=== PATIENT | female | born 1990 | race Caucasian/White ===

== ENCOUNTER 2018-10-10 14:22 | Inpatient (IN) | payer OTHER ==
[2018-10-10] MEDS ORDERED: Lactated Ringers 1000 ML Bag* 1,000 ML IV ONE (16:23)
[2018-10-10] MEDS ORDERED: Buffered Lidocaine 1% SYRIN* 1 ML/SYRINGE INTRADERM ONE (16:23)
--- NOTE | 2018-10-10 16:28 | HP ---
General Information - Reason for Visit Term , induction of labor - General Information Maternal Age: 27 Grav: 5 Para: 4 SAB: 0 IEA: 0 Estimated Due Date: 10/16/18 Determined By: LMP Maternal Blood Type and Rh: O Positive - Results this Serology/RPR Result: Non-Reactive Rubella Result: Immune HBsAg Result: Negative HIV Result: Negative GBS Culture Result: Positive Past Medical History Delivery History: Hx Uncomplicated Vaginal Delivery Pertinent Past Medical History: Non-Contributory Pertinent Past Surgical History: None Pertinent Family History: See Records - HTN - Antepartal Records Antepartal Records: Reviewed, Complicated by: - late to care, BMI 34, GBS + Review of Systems Constitutional: Comfortable CV Complaint: No Respiratory: Shortness of Breath: No Gastrointestinal: No Nausea/Vomiting, Normal Bowel Movement Genitourinary: No Dysuria, No Bleeding, No Leaking Fluid Musculoskeletal: No Complaint, No Epigastric Pain Neurological: No Headache, No Visual Changes Movement: Normal Exam Allergies/Adverse Reactions: Allergies No Known Allergies Allergy (Verified 06/13/13 16:07) T98.7, P:77, R:18, BP: 130/71, O2:99% - Measurements Height: 5 ft 8 in Weight: 238 lb Weight in lbs: 238.238685 Body Mass Index (BMI): 36.1 Pre- Weight: 220 lb Weight Gained This : 18 lbs and 0 ozs - Exam Breast: Breast Exam Deferred CVA: No CVA Tenderness Extremities: No Edema Heart: Normal Rhythm/Heart Sounds HEENT: No Significant Findings Lungs: Clear Bilaterally Rectal: Rectal Exam Deferred Reflexes: DTR 2+ Thyroid: No Thyromegaly - Abdominal Exam Abdomen Exam: Fundal Height Consistent with Dates - Ultrasound/Biophysical Profile Ultrasound Status: Not Done Targeted Exam Findings Estimated Weight: 8lbs Cervical Exam: 4cm Effacement: 70% Station: -2 Presenting Part: Vertex Membrane Status: Intact Bleeding/Discharge: None EFM Findings - External Monitor Findings Baseline Heart Rate: 120 External Monitor Findings: Accelerations Present, No Pattern of Variable or Late Decelerations, Variability Moderate, Baseline Stable Contractions: Irregular, Mild, < 45 Seconds
[2018-10-10 16:49] LABS: ABS Basophils 0.1 10^3/ul (0-0.2); ABS Eosinophils 0.1 10^3/ul (0-0.6); ABS Lymphocytes 1.8 10^3/ul (1.0-4.8); ABS Monocytes 0.5 10^3/ul (0-0.8); ABS Neutrophils 11.5 10^3/ul (1.5-7.7); Eosinophil % 0.5 %; Hematocrit 34 % (35-47); Hemoglobin 11.4 g/dL (12.0-16.0); Mean Corpuscular HGB Conc 34 g/dL (31-36); Mean Corpuscular Hemoglobin 29 pg (27-31); Mean Corpuscular Volume 87 fL (80-97); Mean Platelet Volume 9.7 fL (7.4-10.4); Platelet Count 176 10^3/uL (150-450); Red Blood Count 3.88 10^6 /uL (3.70-4.87); Red Cell Distribution Width 14 % (10.5-15); White Blood Count 13.9 10^3/uL (3.5-10.8)
[2018-10-10] MEDS ORDERED: Penicillin G Potassium IV* 5,000,000 UNITS in NS 0.9% 100 ML* 100 ML IVPB ONE (17:00)
[2018-10-10] MEDS ORDERED: Lactated Ringers 1000 ML Bag* 1,000 ML IV SCH (17:00)
[2018-10-10 17:09] LABS: Albumin 3.5 g/dL (3.2-5.2); Calcium 9.2 mg/dL (8.6-10.3); Potassium 3.7 mmol/L (3.5-5.0); Total Bilirubin 0.5 mg/dL (0.2-1.0)
[2018-10-10 17:15] LABS: Albumin/Globulin Ratio 1.1 (1-3); BUN/Creatinine Ratio 12.9 (8-20); EGFR African American 139.7 (>60); EGFR Non-African American 115.5 (>60); Globulin 3.2 g/dL (2-4); Total Protein 6.7 g/dL (6.4-8.9)
[2018-10-10] MEDS: Penicillin G Potassium IV* 2,500,000 UNITS in NS 0.9% 100 ML* 100 ML IVPB SCH (21:06)
--- NOTE | 2018-10-10 21:31 | PN ---
Progress Note - Progress Note Date of Service: 10/10/18 SOAP: Subjective: [Pt reports irregular mild ctx, + FM, -LOF, -VB.] Objective: [BP: 121/55, P:71, R:18, T:98.7, FHR: 130, + accels, -decels, moderate variability, ctx irregular. Cervix: 4-5/70/-1, AROM- clear] Assessment: [27 y.o. , 39w1d EGA, induction of labor] Plan: [1. AROM 2. Ambulation 3. Con't GBS prophylaxis 4. Reevaluate in 2 hrs or sooner PRN. Consider pitocin augmentation if no progress.]
[2018-10-11] MEDS: Penicillin G Potassium IV* 2,500,000 UNITS in NS 0.9% 100 ML* 100 ML IVPB SCH ×3 (00:56→09:24)
--- NOTE | 2018-10-11 08:25 | PN ---
Progress Note - Progress Note Date of Service: 10/11/18 SOAP: Subjective: [Pt reports she rested a bit, denies regular painful contractions, reports continued LOF, +FM, denies VB. Pt agrees to augmentation] Objective: [BP:124/57, T:97.0, FHR: 135 bpm, + accels, -decels, moderate variability, cervix: 6-7/80/-1] Assessment: [28 y.o. , 39w2d EGA, induction of labor] Plan: [1) Reviewed risks versus benefits of pitocin and agrees to continue with augmentation 2) Nitrous for pain mgmt when uncomfortable 3) Reevaluate in 2 hrs or sooner PRN ]
[2018-10-11] MEDS ORDERED: Oxytocin in LR* 20 UNITS/1,000 ML BAG IVPB SCH ×2 (09:00→11:00)
[2018-10-11] MEDS ORDERED: Lidocaine 2% VISCOUS* 15 ML UDC ONE (10:26)
[2018-10-11] MEDS ORDERED: Glycerin ADULT SUPP PR PRN (10:45)
[2018-10-11] MEDS ORDERED: Acetaminophen TAB* 325 MG PO PRN (10:45)
[2018-10-11] MEDS ORDERED: Dibucaine 1% 28.35 GM TUBE PR PRN (10:45)
[2018-10-11] MEDS ORDERED: Misoprostol TAB* 200 MCG PR ONE (10:45)
[2018-10-11] MEDS ORDERED: Witch Hazel PAD* JAR TOPICAL PRN (10:45)
--- NOTE | 2018-10-11 10:45 | PROCNOTE ---
[facility] OB: Delivery Note - Delivery A Date of : 10/11/18 Time of : 10:35 Sex: Female Score 1 Minute: 8 Score 5 Minutes: 9 Gestational Age in Weeks and Days at Delivery: 39 Weeks and 2 Days Delivery Method: Spontaneous Vaginal Labor: Induced Amniotic Fluid: Clear Estimated Blood Loss: 300 Anesthesia/Analgesia: Nitrous-Labor Delivered By: Rosangela Martin - Nursery Level of Nursery: Regular/Bedside - Perineum Perineal Injury: None/Intact Perineal Repair: None - Events Delivery Events of Note: Pitocin During Labor, Full Course of Antibiotics, Post- Bleeding - Meds Given Delivery Events of Note Comment: Right nuchal arm
[2018-10-11] MEDS ORDERED: Lidocaine 2% VISCOUS* 15 ML UDC PO ONE (10:46)
[2018-10-11] MEDS: Ibuprofen TAB* 600 MG PO PRN ×2 (10:59→17:11)
[2018-10-11] MEDS ORDERED: Lactated Ringers 1000 ML Bag* 1,000 ML IV SCH (11:00)
[2018-10-11] MEDS ORDERED: Simethicone TAB* 80 MG TAB.CHEW PO SCH (12:30)
[2018-10-11] MEDS: Docusate CAP* 100 MG PO SCH ×2 (14:25→19:59)
[2018-10-12] MEDS: Ibuprofen TAB* 600 MG PO PRN ×3 (04:47→20:12)
[2018-10-12 08:21] LABS: ABS Eosinophils 0.2 10^3/ul (0-0.6); ABS Lymphocytes 2.2 10^3/ul (1.0-4.8); ABS Monocytes 0.9 10^3/ul (0-0.8); ABS Neutrophils 11.3 10^3/ul (1.5-7.7); Eosinophil % 1.4 %; Hematocrit 30 % (35-47); Hemoglobin 10.1 g/dL (12.0-16.0); Lymphocyte % 15.2 %; Mean Corpuscular HGB Conc 34 g/dL (31-36); Mean Corpuscular Hemoglobin 30 pg (27-31); Mean Corpuscular Volume 88 fL (80-97); Mean Platelet Volume 9.9 fL (7.4-10.4); Platelet Count 182 10^3/uL (150-450); Red Blood Count 3.42 10^6 /uL (3.70-4.87); Red Cell Distribution Width 14 % (10.5-15); White Blood Count 14.7 10^3/uL (3.5-10.8)
[2018-10-12] MEDS ORDERED: Ferrous Gluconate TAB* 324 MG TAB PO SCH (09:00)
[2018-10-12] MEDS: Docusate CAP* 100 MG PO SCH ×3 (10:22→20:12)
[2018-10-13] MEDS: Docusate CAP* 100 MG PO SCH (08:51)
[2018-10-13] MEDS: Ibuprofen TAB* 600 MG PO PRN (08:51)
[2018-10-13 09:02] VITALS: BP 130/66
== END 2018-10-13 11:32 | disposition home or self-care (01) | DRG 560 ==
LOC: MCHOBOUT 14:22 → MCHOB 16:27
PROVIDERS: ADMIT Midwife; ATTEND Obstetrics & Gynecology
PROC: 10E0XZZ Delivery of Products of Conception, External Approach (ICD-10-PCS; principal; 2018-10-11)
PROC: 3E033VJ Introduction of Other Hormone into Peripheral Vein, Percutaneous Approach (ICD-10-PCS; 2018-10-11)
PROC: 10907ZC Drainage of Amniotic Fluid, Therapeutic from Products of Conception, Via Natural or Artificial Opening (ICD-10-PCS; 2018-10-11)
DX: O99.824 Streptococcus B carrier state complicating childbirth (principal); Z37.0 Single live birth; O32.2XX0 Maternal care for transverse and oblique lie, not applicable or unspecified; O72.1 Other immediate postpartum hemorrhage; Z3A.39 39 weeks gestation of pregnancy
CPT/HCPCS: 36415; 80053; 85025; 86850; 86900; 86901; A9270-GY; J2540

== ENCOUNTER 2019-08-14 18:30 | Emergency (ER) | payer OTHER ==
--- NOTE | 2019-08-14 19:37 | ED ---
- HPI Summary HPI Summary: This pt is a 28 Y/O F presenting to [facility] with a CC of vaginal bleeding and cramping that began today at 1400 and has not bleed through her first pad. She states that the cramps were intense for 2 hours but has recently decreased to a 1/10 in severity. She states that she is currently 8 weeks and has a GPA of 6,5,0. She states that she has been nauseous today as well. She denies any previous Hx of bleeding or cramping during her pregnancies. She denies any fevers, chills, headaches, SOB, and vomiting. She has no aggravating or alleviating factors. She has no pertinent PMHx. She denies any SHx of tobacco, alcohol, or drug use during her . - History of Current Complaint Chief Complaint: EDOBProblems Stated Complaint: CRAMPING/BLEEDING/ 8 WKS PREG PER PT Time Seen by Provider: 08/14/19 19:26 Hx Obtained From: Patient Chief Complaint: Vaginal Bleeding Onset/Duration: Started Hours Ago - 5, Still Present, Resolved Timing: Constant Severity: Severe Current Severity: Mild Pain Intensity: 1 Location of Pain: Groin Character: Cramping Aggravating Factors: Nothing Alleviating Factors: Nothing Associated Signs and Symptoms: Positive: Negative - chills, headaches, SOB, Nausea, Vaginal Bleeding or Discharge. Negative: Fever, Vomiting - Assessment SAB: 0 IEA: 0 - Additional Pertinent History Maternal Blood Type and Rh: O Positive - Allergies/Home Medications Allergies/Adverse Reactions: Allergies Allergy/AdvReac Type Severity Reaction Status Date / Time No Known Allergies Allergy Verified 08/14/19 18:57 Home Medications: Home Medications Acetaminophen TAB* [Tylenol TAB*] 650 mg PO Q4H PRN tab 10/13/18 [Rx Confirmed 08/14/19] Ibuprofen TAB* [Motrin TAB* 600 MG] 600 mg PO Q6H PRN tab 10/13/18 [Rx Confirmed 08/14/19] PMH/Surg Hx/FS Hx/Imm Hx Previously Healthy: Yes Endocrine/Hematology History: Denies: Hx Diabetes, Hx Thyroid Disease Cardiovascular History: Denies: Hx Hypertension Respiratory History: Denies: Hx Asthma, Hx Chronic Obstructive Pulmonary Disease (COPD) GI History: Denies: Hx Ulcer - Cancer History Hx Chemotherapy: No Hx Radiation Therapy: No - Surgical History Surgical History: None - Immunization History Immunizations Up to Date: Yes Infectious Disease History: No Infectious Disease History: Denies: Hx Hepatitis, Hx Human Immunodeficiency Virus (HIV), History Other Infectious Disease, Traveled Outside the [place] in Last 30 Days - Family History Known Family History: Negative: Hypertension, Diabetes - Social History Occupation: Employed Full-time Lives: With Family Alcohol Use: None Hx Substance Use: No Substance Use Type: Reports: None Hx Tobacco Use: No Smoking Status (MU): Never Smoked Tobacco Review of Systems Negative: Fever, Chills Negative: Shortness Of Breath Positive: Abdominal Pain - cramping, Nausea. Negative: Vomiting Negative: Headache All Other Systems Reviewed And Are Negative: Yes Physical Exam - Summary Physical Exam Summary: Constitutional: Well-developed, Well-nourished, Alert. (-) Distressed Skin: Warm, Dry HENT: Normocephalic; Atraumatic Eyes: Conjunctiva normal Neck: Musculoskeletal ROM normal neck. (-) JVD, (-) Stridor, (-) Tracheal deviation Cardio: Rhythm regular, rate normal, Heart sounds normal; Intact distal pulses; The pedal pulses are 2+ and symmetric. Radial pulses are 2+ and symmetric. (-) Murmur Pulmonary/Chest wall: Effort normal. (-) Respiratory distress, (-) Wheezes, (-) Rales Abd: Soft, (-) tenderness, (-) Distension, (-) Guarding, (-) Rebound Musculoskeletal: (-) Edema Lymph: (-) Cervical adenopathy Neuro: Alert, Oriented x3 Psych: Mood and affect Normal - Physical Exam Triage Information Reviewed: Yes Vital Signs On Initial Exam: Temp Pulse Resp BP SpO2 FiO2 97.5 F 68 16 147/79 100 08/14/19 18:53 08/14/19 18:53 08/14/19 18:53 08/14/19 18:53 08/14/19 18:53 Vital Signs Reviewed: Yes Procedures - Sedation Patient Received Moderate/Deep Sedation with Procedure: No Diagnostics - Vital Signs Vital Signs Temp Pulse Resp BP Pulse Ox 08/14/19 18:53 97.5 F 68 16 147/79 100 - Laboratory Result Diagrams: 08/14/19 19:39 08/14/19 19:39 Lab Statement: Any lab studies that have been ordered have been reviewed, and results considered in the medical decision making process. - Ultrasound US Ultrasound Interpretation Completed By: Radiologist Summary of Ultrasound Findings: 1. Single live intrauterine fetus with an estimated age of 8 weeks 0 days. The EDC is 03/25/2020. 2. Subchronic hemorrhage measuring 2.9 x 2.6 x 1.5 cm. 3. Myometrial cyst measuring 8 x 8 x 11 mm. ED physician has reviewed this report. Course/Dx - Course Course Of Treatment: This pt is a 28 Y/O F presenting to [facility] with a CC of vaginal bleeding and cramping that began today at 1400 and has not bleed through her first pad. She states that the cramps were intense for 2 hours but has recently decreased to a 1/10 in severity. Her GPA is a 6,5,0. She has no pertient PMHx. Her PE found no acute abnormalities. US: 1. Single live intrauterine fetus with an estimated age of 8 weeks 0 days. The. EDC is 2019. 2. Subchronic hemorrhage measuring 2.9 x 2.6 x 1.5 cm. 3. Myometrial cyst measuring 8 x 8 x 11 mm. Her Beta HCG value is elevated at 918227.00. She will be discharged home with a Dx of first trimester vaginal bleeding. - Diagnoses Provider Diagnoses: Vaginal bleeding in patient after first trimester Discharge ED - Sign-Out/Discharge Documenting (check all that apply): Patient Departure - discharge - Discharge Plan Condition: Good Disposition: HOME Patient Education Materials: Threatened Miscarriage (ED) Referrals: Chris Reilly MD [Primary Care Provider] - Additional Instructions: The embryo is in the right place and has a good heartbeat, so everything looks good for now. Please call Dr. Morris's office in the morning so they can arrange followup for you. - Billing Disposition and Condition Condition: GOOD Disposition: Home - Attestation Statements Document Initiated by Scribe: Yes Documenting Scribe: Gael Colon Provider For Whom Richard is Documenting (Include Credential): Jamie Villa MD Scribe Attestation: Gael Valadez, scribed for Jamie Villa MD on 08/15/19 at 0308. Scribe Documentation Reviewed: Yes Provider Attestation: The documentation as recorded by the Gael kendrick accurately reflects the service I personally performed and the decisions made by me, Jamie Villa MD Status of Scribe Document: Viewed
[2019-08-14 20:00] LABS: ABS Basophils 0.1 10^3/ul (0-0.2); ABS Lymphocytes 1.9 10^3/ul (1.0-4.8); ABS Monocytes 0.6 10^3/ul (0-0.8); ABS Neutrophils 10.2 10^3/ul (1.5-7.7); Eosinophil % 0.4 %; Hematocrit 35 % (35-47); Hemoglobin 11.7 g/dL (12.0-16.0); Lymphocyte % 14.6 %; Mean Corpuscular HGB Conc 34 g/dL (31-36); Mean Corpuscular Hemoglobin 29 pg (27-31); Mean Corpuscular Volume 86 fL (80-97); Platelet Count 253 10^3/uL (150-450); Red Blood Count 4.06 10^6 /uL (3.70-4.87); Red Cell Distribution Width 15 % (10-15); White Blood Count 12.8 10^3/uL (3.5-10.8)
[2019-08-14 20:13] LABS: Albumin 3.8 g/dL (3.2-5.2); Albumin/Globulin Ratio 1.2 (1-3); BUN/Creatinine Ratio 16.7 (8-20); Calcium 9.6 mg/dL (8.6-10.3); EGFR Non-African American 106.6 (>60); Globulin 3.3 g/dL (2-4); Potassium 3.4 mmol/L (3.5-5.0); Total Bilirubin 0.3 mg/dL (0.2-1.0); Total Protein 7.1 g/dL (6.4-8.9)
[2019-08-14 21:38] VITALS: BP 132/74
== END 2019-08-14 21:37 | disposition home or self-care (01) ==
LOC: ED 18:30
DX: O46.91 Antepartum hemorrhage, unspecified, first trimester (principal); Z3A.08 8 weeks gestation of pregnancy; N93.9 Abnormal uterine and vaginal bleeding, unspecified; R11.0 Nausea
CPT/HCPCS: 36415; 76801; 80053; 84702; 85025; 86850; 86900; 86901; 99282

== ENCOUNTER 2020-03-25 16:39 | Inpatient (IN) ==
[~2020-03-25 16:39] MED LIST: Buffered Lidocaine 1% SYRIN 1 ml INTRADERM ONE; Lactated Ringers 1000 ml BAG 1,000 ML IV SCH; Oxytocin in LR 20 UNITS/1,000 ML BAG IVPB SCH; Penicillin G Potassium IV 5,000,000 UNITS in NS 0.9% 100 ml BAG 100 ML IVPB ONE
[2020-03-25 17:36] LABS: Hematocrit 33 % (35-47); Hemoglobin 11.1 g/dL (12.0-16.0); Mean Corpuscular HGB Conc 33 g/dL (31-36); Mean Corpuscular Hemoglobin 28 pg (27-31); Mean Corpuscular Volume 83 fL (80-97); Mean Platelet Volume 8.9 fL (7.4-10.4); Platelet Count 254 10^3/uL (150-450); Red Blood Count 4.04 10^6 /uL (3.70-4.87); Red Cell Distribution Width 22 % (10-15); White Blood Count 15.5 10^3/uL (3.5-10.8)
[2020-03-25 17:59] LABS: Albumin 3.4 g/dL (3.2-5.2); Albumin/Globulin Ratio 0.9 (1-3); BUN/Creatinine Ratio 12.9 (8-20); Calcium 9.7 mg/dL (8.6-10.3); EGFR African American 137.7 (>60); EGFR Non-African American 113.8 (>60); Globulin 3.7 g/dL (2-4); Potassium 3.8 mmol/L (3.5-5.0); Total Bilirubin 0.4 mg/dL (0.2-1.0); Total Protein 7.1 g/dL (6.4-8.9); Uric Acid 5.1 mg/dL (2.3-6.6)
[2020-03-25 18:26] LABS: Urine Benzodiazepine Screen None Detected (None Detect); Urine Cannabinoids Screen None Detected (None Detect); Urine Opiates Screen None Detected (None Detect)
[2020-03-25 18:42] LABS: ABS Eosinophils 0.1 10^3/ul (0-0.6); ABS Lymphocytes 1.8 10^3/ul (1.0-4.8); ABS Neutrophils 12.6 10^3/ul (1.5-7.7); Eosinophil % 0.3 %; Lymphocyte % 11.6 %
[2020-03-25] MEDS ORDERED: OBEPIDURAL 250 ML EPIDURAL ONE (19:54)
[2020-03-25] MEDS ORDERED: Sodium Citrate/Citric Acid LIQ 15 ML UDC PO PRN (20:46)
[2020-03-25] MEDS ORDERED: Lactated Ringers 1000 ml BAG 500 ML IV PRN (20:46)
[2020-03-25] MEDS ORDERED: Lactated Ringers 1000 ml BAG 1,000 ML IV ONE (20:46)
[2020-03-25] MEDS ORDERED: Phenylephrine 40 mcg/mL 10mL (400mcg) SYRINGE IV PUSH PRN ×2 (20:46)
[2020-03-25] MEDS ORDERED: Lactated Ringers 1000 ml BAG 1,000 ML IV SCH (21:00)
[2020-03-25] MEDS ORDERED: OBEPIDURAL 250 ML EPIDURAL SCH (21:00)
[2020-03-25] MEDS ORDERED: Penicillin G Potassium IV 3,000,000 UNITS in NS 0.9% 100 ml BAG 100 ML IVPB SCH (21:30)
[2020-03-25] MEDS ORDERED: Dibucaine 1% OINT 28.35 GM TUBE PR PRN (22:18)
[2020-03-25] MEDS ORDERED: Witch Hazel PAD JAR TOPICAL PRN (22:18)
[2020-03-25] MEDS ORDERED: Tetan/Diph/Pertus SYR(Tdap) 0.5 ML SYR(BOOSTRIX) use SYR contains LATEX IM ONE (22:18)
[2020-03-25] MEDS ORDERED: Glycerin ADULT 2.4 gm SUPP PR PRN (22:18)
[2020-03-25] MEDS ORDERED: Oxytocin in LR 20 UNITS/1,000 ML BAG IVPB SCH (23:00)
[2020-03-26] MEDS ORDERED: Ammonia Inhalant 1 EA AMP ONE (00:27)
[2020-03-26 07:16] LABS: ABS Eosinophils 0.1 10^3/ul (0-0.6); ABS Monocytes 1.3 10^3/ul (0-0.8); ABS Neutrophils 14.9 10^3/ul (1.5-7.7); Eosinophil % 0.5 %; Hematocrit 28 % (35-47); Hemoglobin 9.5 g/dL (12.0-16.0); Lymphocyte % 15.4 %; Mean Corpuscular HGB Conc 34 g/dL (31-36); Mean Corpuscular Hemoglobin 28 pg (27-31); Mean Corpuscular Volume 83 fL (80-97); Mean Platelet Volume 9.1 fL (7.4-10.4); Platelet Count 225 10^3/uL (150-450); Red Blood Count 3.39 10^6 /uL (3.70-4.87); Red Cell Distribution Width 22 % (10-15); White Blood Count 19.4 10^3/uL (3.5-10.8)
[2020-03-27 08:15] VITALS: BP 149/89
== END 2020-03-27 16:42 | disposition home or self-care (01) | DRG 560 ==
LOC: MCHOBOUT 16:39 → MCHOB 17:23
PROVIDERS: ADMIT Obstetrics & Gynecology; ATTEND Obstetrics & Gynecology

== ENCOUNTER 2021-09-01 14:58 | Inpatient (IN) ==
[2021-09-01] MEDS ORDERED: Ondansetron ODT 4 mg TAB 4 MG TAB SL ONE (15:13)
[2021-09-01 15:50] LABS: ABS Neutrophils 15.1 10^3/ul (1.5-7.7); Hematocrit 36 % (35-47); Lymphocyte % 5.6 %; Mean Corpuscular HGB Conc 34 g/dL (31-36); Mean Corpuscular Hemoglobin 29 pg (27-31); Mean Corpuscular Volume 84 fL (80-97); Mean Platelet Volume 8.9 fL (7.4-10.4); Platelet Count 309 10^3/uL (150-450); Red Blood Count 4.21 10^6 /uL (3.70-4.87); Red Cell Distribution Width 15 % (10-15); White Blood Count 17.1 10^3/uL (3.5-10.8)
[2021-09-01 16:34] LABS: HCG Pregnancy < 0.60 mIU/mL
[2021-09-01 16:45] LABS: ALT 16 U/L (7-52); AST 16 U/L (13-39); Albumin/Globulin Ratio 1.1 (1-3); Alkaline Phosphatase 66 U/L (35-149); Anion Gap 9 mmol/L (2-11); Blood Urea Nitrogen 7 mg/dL (6-24); C Reactive Protein 155.54 mg/L (<8.01); CO2 Carbon Dioxide 25 mmol/L (22-32); Calcium 8.6 mg/dL (8.6-10.3); Chloride 98 mmol/L (101-111); Globulin 3.5 g/dL (2-4); Glucose 91 mg/dL (70-100); Lipase < 10 U/L (11.0-82.0); Potassium 3.7 mmol/L (3.5-5.0); Sodium 132 mmol/L (135-145); Total Protein 7.5 g/dL (6.4-8.9); eGFR CKD-EPI 104.7 (>60)
[2021-09-01] MEDS ORDERED: Iohexol 300 (CONTRAST) 10 ML SDV IV ONE (17:14)
[2021-09-01 18:41] LABS: Influenza A Molecular Negative (Negative); Influenza B Molecular Negative (Negative)
[2021-09-01] MEDS: Lactated Ringers 1000 ml BAG 1,000 ML IV ONE ×2 (19:53→22:10)
[2021-09-01] MEDS: Ondansetron 4 mg VIAL 2 MG/ML 2 ml VIAL IV ONE (19:55)
[2021-09-01] MEDS ORDERED: cefTRIAXone 1 gm/50 mL D5W 1 GM/50 ML BAG IV ONE (20:02)
[2021-09-01] MEDS ORDERED: Pantoprazole VIAL 40 MG VIAL IV ONE (21:01)
[2021-09-01 21:38] LABS: Urine Appearance Clear; Urine Bacteria Absent (Absent); Urine Bilirubin Negative (Negative); Urine Blood 2+ (Negative); Urine Color Yellow; Urine Glucose Negative (Negative); Urine Ketones 2+ (Negative); Urine Nitrite Negative (Negative); Urine Protein Negative (Negative); Urine Red Blood Cell Trace(0-2/hpf) (Absent); Urine Squamous Epithelial Cell Present (Absent); Urine Urobilinogen Negative (Negative); Urine White Blood Cell Trace(0-5/hpf) (Absent)
[2021-09-01 21:39] LABS: Urine Specific Gravity > 1.060 (1.002-1.030)
[2021-09-01] MEDS ORDERED: Lactated Ringers 1000 ml BAG 1,000 ML IV ONE ×2 (22:31→23:20)
[2021-09-01] MEDS ORDERED: Ondansetron 4 mg VIAL 2 MG/ML 2 ml VIAL IV PRN (23:20)
[2021-09-02] MEDS ORDERED: Pantoprazole VIAL 40 MG VIAL IV SCH
[2021-09-02] MEDS: Ondansetron 4 mg VIAL 2 MG/ML 2 ml VIAL IV ONE (00:10)
[2021-09-02 00:32] LABS: Hematocrit 29 % (35-47); Hemoglobin 9.8 g/dL (12.0-16.0)
[2021-09-02 05:52] LABS: ABS Lymphocytes 1.4 10^3/ul (1.0-4.8); ABS Monocytes 1.4 10^3/ul (0-0.8); ABS Neutrophils 11.7 10^3/ul (1.5-7.7); Eosinophil % 0.1 %; Hematocrit 31 % (35-47); Hemoglobin 10.4 g/dL (12.0-16.0); Lymphocyte % 9.4 %; Mean Corpuscular HGB Conc 34 g/dL (31-36); Mean Corpuscular Hemoglobin 29 pg (27-31); Mean Corpuscular Volume 84 fL (80-97); Mean Platelet Volume 9.1 fL (7.4-10.4); Platelet Count 229 10^3/uL (150-450); Red Blood Count 3.65 10^6 /uL (3.70-4.87); Red Cell Distribution Width 15 % (10-15); White Blood Count 14.5 10^3/uL (3.5-10.8)
[2021-09-02 05:57] LABS: INR 1.2 (0.86-1.15)
[2021-09-02 06:15] LABS: Calcium 7.8 mg/dL (8.6-10.3); Potassium 3.4 mmol/L (3.5-5.0); eGFR CKD-EPI 122.3 (>60)
[2021-09-02] MEDS: Pantoprazole VIAL 40 MG VIAL IV SCH ×2 (07:51→21:10)
[2021-09-02] MEDS ORDERED: Potassium Chlor 20 meq TAB.ER PO ONE (09:30)
[2021-09-02 14:20] LABS: Chlamydia trachomatis NAA Negative (Negative); Neisseria gonorrhoeae (GC) NAA Negative (Negative)
[2021-09-02 17:07] LABS: Hematocrit 34 % (35-47); Hemoglobin 11.3 g/dL (12.0-16.0)
[2021-09-02] MEDS ORDERED: cefTRIAXone 1 gm/50 mL D5W 1 GM/50 ML BAG IV SCH (20:00)
[2021-09-03 06:38] LABS: ABS Eosinophils 0.1 10^3/ul (0-0.6); ABS Lymphocytes 1.6 10^3/ul (1.0-4.8); ABS Monocytes 0.9 10^3/ul (0-0.8); ABS Neutrophils 7.4 10^3/ul (1.5-7.7); Eosinophil % 0.7 %; Hematocrit 30 % (35-47); Hemoglobin 10.6 g/dL (12.0-16.0); Lymphocyte % 15.9 %; Mean Corpuscular HGB Conc 35 g/dL (31-36); Mean Corpuscular Hemoglobin 29 pg (27-31); Mean Corpuscular Volume 84 fL (80-97); Mean Platelet Volume 8.8 fL (7.4-10.4); Platelet Count 241 10^3/uL (150-450); Red Blood Count 3.62 10^6 /uL (3.70-4.87); Red Cell Distribution Width 15 % (10-15); White Blood Count 9.9 10^3/uL (3.5-10.8)
[2021-09-03 06:51] LABS: Calcium 8.3 mg/dL (8.6-10.3); Potassium 4.1 mmol/L (3.5-5.0); eGFR CKD-EPI 120.9 (>60)
[2021-09-03] MEDS: Pantoprazole VIAL 40 MG VIAL IV SCH (09:17)
[2021-09-03] MEDS ORDERED: Amoxicillin/Clavul 875/125 TAB (Augmentin 875 tab) PO ONE (18:03)
[2021-09-03 19:51] VITALS: BP 135/80
== END 2021-09-03 19:50 | disposition home or self-care (01) | DRG 463 ==
LOC: ED 14:58 → SUATTDRO 23:15 → EDHOLD 23:15 → MED 09-02 02:53
PROVIDERS: ADMIT Internal Medicine; ATTEND Hospitalist